=== PATIENT | female | born 1960 | race Two or more races ===

== ENCOUNTER 2016-12-31 13:50 | Emergency (ER) | payer MEDICARE, OTHER ==
[~2016-12-31] VITALS: Ht 160 cm; Wt 74.0 kg
[~2016-12-31 13:50] MED LIST: ATOR40TA68 PO
[2016-12-31 14:33] VITALS: Ht 160 cm; Wt 74.0 kg
[2016-12-31] MEDS ORDERED: AZIT250T94 PO (16:02)
[2016-12-31] MEDS ORDERED: D-ME473S18 PO (16:02)
[2016-12-31] MEDS ORDERED: IBUP-1542 PO (16:02)
--- NOTE | 2016-12-31 16:05 | ERD ---
ER Documentation Chief Complaint Date/Time DATE: 12/31/16 TIME: 16:03 Chief Complaint SINUS PRESSURE, COUGH, SORETHROAT & EAR ACHE X 8 DAYS HPI This 56-year-old male complains of nasal congestion, cough, sore throat earache for the last week. She denies fevers although feels chills at night. She denies any productive cough extremity chest pain, vomiting, abdominal pain, diarrhea. ROS All systems reviewed and are negative except as per history of present illness. Medications Home Meds Active Scripts Dextromethorphan Hb-Promethazine Hcl (Promethazine DM Syrup) 473 Ml Syrup, 5 ML PO Q6H Y for CONGESTION, #4 OZ Prov:REYNA BURNETT MD 12/31/16 Ibuprofen* (Motrin*) 600 Mg Tab, 600 MG PO Q6, #15 TAB Prov:REYNA BURNETT MD 12/31/16 Azithromycin* (Zithromax*) 250 Mg Tablet, 250 MG PO .ZPACK DIRECTED, #6 TAB TAKE 500 MG (2 TABS) THE FIRST DAY THEN 250 MG (1 TAB) DAYS 2-5 Prov:REYNA BURNETT MD 12/31/16 Reported Medications Atorvastatin* (Atorvastatin*) 40 Mg Tablet, 40 MG PO QHS, #30 TAB 09/04/16 Allergies Allergies: Coded Allergies: codeine (Verified Allergy, Unknown, 06/13/16) hydromorphone (Verified Adverse Reaction, Severe, anxiety, crying, palpitation, 06/15/16) PMhx/Soc History of Surgery: Yes (hysterectomy, cholecystectomy, ectopic preg., lymphoma removal) Anesthesia Reaction: No Hx Neurological Disorder: No Hx Respiratory Disorders: No Hx Cardiac Disorders: Yes (HLD) Hx Psychiatric Problems: No Hx Miscellaneous Medical Probl: Yes (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 TMs normal. Pupils nasal congestion and postnasal drip. Neck: Full range of motion..~ No meningismus. Resp: Clear to auscultation bilaterally. Dry cough without rales or wheezing retractions appreciated Cardio: Regular rate and rhythm, no murmurs Abd: Soft, non tender, non distended. Normal bowel sounds Skin: No petechiae or rashes Back: No midline or flank tenderness Ext: No cyanosis, or edema Neur: Awake and alert Psych: Normal Mood and Affect Procedures/MDM Patient presents with URI symptoms last week. She may have a viral illness but given duration and findings on exam she will be treated for sinusitis with Zithromax, promethazine and ibuprofen. The patient was stable with no new complaints during the ER course. Clinically, there is no current evidence to suggest meningitis, sepsis, acute abdomen, pneumonia, acute coronary syndrome, pulmonary embolism, or any other emergent condition appearing to require further evaluation or hospitalization. The patient should certainly return for any new or worsening symptoms per the aftercare instructions. They should otherwise follow-up with her primary care doctor for reevaluation this week. Departure Diagnosis: Primary Impression: Acute bacterial sinusitis Condition: Stable Patient Instructions: Sinusitis, Abx Tx Additional Instructions: Cheque otro vez con rene doctor primario en el proximo sampson or regresa para mas o nueva simptomas. REYNA BURNETT MD Dec 31, 2016 16:05
== END 2016-12-31 16:28 | disposition home or self-care (01) ==
LOC: FTE 13:50
DX: J01.90 Acute sinusitis, unspecified (principal)
CPT/HCPCS: 99284

== ENCOUNTER 2017-11-25 08:02 | Emergency (ER) | END 2017-11-25 10:56 | disposition home or self-care (01) ==

== ENCOUNTER 2018-07-06 21:34 | Emergency (ER) | END 2018-07-07 01:32 | disposition home or self-care (01) ==